=== PATIENT | male | born 1995 | race Caucasian/White ===

== ENCOUNTER → 2025-03-04 | Outpatient (REF) ==
[2025-03-04 11:31] LABS: SOFIA COVID ANTIGEN NEGATIVE (NEGATIVE)
== END ==
LOC: M EMP 11:11
PROVIDERS: ATTEND Family Medicine
DX: Z11.52 Encounter for screening for COVID-19 (principal)

== ENCOUNTER → 2025-09-17 | Outpatient (REF) | LOC: M EMP 08:25 | PROVIDERS: ATTEND Family Medicine | DX: Z01.89 Encounter for other specified special examinations (principal) ==